=== PATIENT | female | born 1950 | race Caucasian/White ===

== ENCOUNTER → 2016-11-26 | Outpatient (CLI) | payer BC | LOC: MAMO 13:41 | DX: Z12.31 Encounter for screening mammogram for malignant neoplasm of breast (principal) | CPT/HCPCS: G0202 ==

== ENCOUNTER → 2017-03-15 | Outpatient (CLI) | payer BC | LOC: KOH-I 13:47 | DX: M25.561 Pain in right knee (principal) | CPT/HCPCS: 73564 ==

== ENCOUNTER → 2020-11-27 | Outpatient (CLI) | payer OTHER ==
[~2020-11-27] MED LIST: B COMPLEX # 11 EACH PO; CLARITIN 10MG T10 MG PO; DYAZIDE 37.5/251 EA PO; ELIQUIS5 MG PO; K-DUR TAB 10 M10 MEQ PO; LIPITOR TAB 1010 MG PO; LIPITOR TAB 2020 MG PO; LIPITOR40 MG PO; LORAZEPAM0.5 MG PO; METOPROLOL TART50 MG PO; OMEPRAZOLE40 MG PO; POTASSIUM CHLO10 ME1 PO; PROTONIX40 MG PO; SOTALOL80 MG PO; SYNTHROID50 MCG PO; TOPROL XL50 MG PO; TRIAMTERENE-HC1 EAC1 PO; VICTOZA 1818 MG/3 ML SQ; VITAMIN D1000 UNIT PO; XIGDUO XR 10 M1 EACH PO; ZOLOFT25 MG PO
== END ==
LOC: HEART 5 09:12
DX: R60.9 Edema, unspecified (principal); R06.02 Shortness of breath; I07.1 Rheumatic tricuspid insufficiency; R93.1 Abnormal findings on diagnostic imaging of heart and coronary circulation
CPT/HCPCS: 93306

== ENCOUNTER → 2020-12-31 | Outpatient (CLI) | payer OTHER | LOC: MRI 09:56 | DX: M54.5 Low back pain (principal); M51.36 Other intervertebral disc degeneration, lumbar region | CPT/HCPCS: 72148 ==

== ENCOUNTER → 2021-03-26 | Outpatient (CLI) | payer OTHER | LOC: KOH-I 13:59 | DX: M25.571 Pain in right ankle and joints of right foot (principal) | CPT/HCPCS: 73610; 73630 ==

== ENCOUNTER 2021-07-20 15:29 | Emergency (ER) | payer OTHER ==
[~2021-07-20] VITALS: Ht 160 cm; Wt 90.7 kg
[2021-07-20 16:06] LABS: HEMOGLOBIN 14.2 gm/dl (12.3-15.3); RED BLOOD COUNT 4.77 M/UL (4.00-5.10)
[2021-07-20 16:36] LABS: BUN/CREATININE RATIO 25 (0-10)
== END 2021-07-20 19:59 | disposition home or self-care (01) ==
LOC: ER1 15:29
PROVIDERS: Emergency Medicine
DX: R42 Dizziness and giddiness (principal); R00.2 Palpitations; I48.91 Unspecified atrial fibrillation; Z20.822 Contact with and (suspected) exposure to COVID-19
CPT/HCPCS: 70450; 71045; 80053; 82550; 82553; 83874; 84484; 85025; 85610; 85730; 93005; 99285; J7040; U0002

== ENCOUNTER → 2021-07-20 | Outpatient (CLI) | payer OTHER | LOC: MAMO 13:42 | DX: Z12.31 Encounter for screening mammogram for malignant neoplasm of breast (principal) | CPT/HCPCS: 77063; 77067 ==

== ENCOUNTER → 2021-10-21 | Outpatient (CLI) | payer BC | LOC: HEART 5 09:44 | DX: I48.0 Paroxysmal atrial fibrillation (principal); R55 Syncope and collapse ==

== ENCOUNTER → 2022-01-25 | Outpatient (CLI) | payer BC | LOC: HEART 5 07:50 | DX: I20.8 Other forms of angina pectoris (principal); I47.2 Ventricular tachycardia | CPT/HCPCS: 78452; A9502; J2785 ==